=== PATIENT | male | born 1980 | race Caucasian/White ===

== ENCOUNTER 2016-07-06 23:30 | Emergency (ER) | payer BC, OTHER ==
[2016-07-07 00:05] LABS: SPECIFIC GRAVITY 1.025 (1.001-1.030); URINE BILIRUBIN NEGATIVE (NEGATIVE); URINE BLOOD TRACE (NEGATIVE); URINE GLUCOSE (UA) NEGATIVE (NEGATIVE); URINE LEUKOCYTE ESTERASE NEGATIVE (NEGATIVE); URINE NITRITE NEGATIVE (NEGATIVE); URINE PROTEIN NEGATIVE (NEGATIVE); URINE UROBILINOGEN 1 mg/dL (0-1 mg/dl)
[2016-07-07 00:07] LABS: URINE APPEARANCE CLEAR; URINE COLOR YELLOW
[2016-07-07] MEDS ORDERED: ONDANSETRON 4 MG ODT TAB ONE (00:48)
[2016-07-07] MEDS ORDERED: HYDROMORPHONE HCL 1 MG/ML SYRINGE ONE (01:11)
[2016-07-07] MEDS ORDERED: ONDANSETRON 4 MG/2ML 2 ML VIAL ONE (01:16)
[2016-07-07 01:30] LABS: ABSOLUTE NEUTROPHIL COUNT 6.3 K/mm3 (1.8-7.7); BASO # 0.1 K/mm3 (0.0-0.2); BASO % 0.6 % (0.2-1.0); EOS # 0.1 (0.0-0.5); EOS % 0.7 % (0.9-2.9); HEMATOCRIT 45.3 % (32.0-52.0); HEMOGLOBIN 14.8 gm/l (14.0-18.0); IMM NEUT% 0.2 % (0-1); LYMPH # 1.4 (1.0-4.8); LYMPH % 16.5 % (15-45); MEAN CELL VOLUME 86.5 fl (80.0-94.0); MEAN CORPUSCULAR HEMOGLOBIN 28.2 pg (27.0-31.0); MEAN CORPUSCULAR HGB CONC 32.7 g/dl (33.0-37.0); MEAN PLATELET VOLUME 11.2 fl (7.4-10.4); MONO # 0.7 (0.0-0.8); MONO % 8.3 % (4-12); NEUT % 73.7 % (43-75); PLATELET COUNT 221 K/mm3 (130-400); RED CELL DISTRIBUTION WIDTH 12.7 % (11.5-14.5)
[2016-07-07 01:41] LABS: ALBUMIN 4.4 gm/dL (3.5-5.7); CALCIUM 9.3 mg/dL (8.6-10.3)
[2016-07-07] MEDS ORDERED: KETOROLAC TROMETHAMINE 30 MG/ML 1 ML VIAL ONE (02:03)
[2016-07-07 02:10] LABS: ALB/GLOB RATIO 1.6 (>1.0)
--- NOTE | 2016-07-07 07:55 | CT ---
Exam: CT abdomen and pelvis without contrast COMPARISON: None INDICATION: Left flank pain for 3 hours. TECHNIQUE: CT examination of the abdomen and pelvis was obtained without contrast using a renal stone protocol. FINDINGS: There is a 3 mm calculus within the dependent urinary bladder. There is a 2 mm nonobstructing calculus the upper pole the right kidney. No additional calculus is identified within either kidney, ureter or bladder. Minor asymmetric stranding is seen about the left kidney and ureter. This likely reflects a recently passed calculus. There is no significant hydronephrosis. Cholelithiasis. Hepatic steatosis. Spleen is minimally enlarged at 14.4 cm. Pancreas is within normal limits and there is no adrenal mass. Tiny fat-containing periumbilical hernia is noted. There is no significant pelvic lymphadenopathy or fluid collection. The bowel is unremarkable and there is no bowel obstruction, free air or free intraperitoneal fluid. High density material about the base of the cecum is noted, is potentially related to appendectomy. Tiny hiatal hernia. Lung bases are clear. There is a fragmented appearance of the acetabulum bilaterally. 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 Facet arthropathy is present within the lumbar spine. IMPRESSION: 1. 3 mm calculus within the urinary bladder, likely just passed from the left ureter given the minor asymmetric perinephric stranding on the left. 2 mm nonobstructing calculus is noted within the right kidney. No additional calculi or hydronephrosis is identified. 2. Several incidental findings as above, including cholelithiasis, hepatic steatosis, minor splenomegaly, appendectomy changes as well as chronic changes in the bones as above. Preliminary report transmitted to the emergency department from [facility] at 0247 hours 07/07/2016.
== END 2016-07-07 04:05 | disposition home or self-care (01) ==
LOC: ED 23:30
DX: N20.1 Calculus of ureter (principal); E78.5 Hyperlipidemia, unspecified; Z79.899 Other long term (current) drug therapy
CPT/HCPCS: 85025; 80053; 81001; 74176; 96375; 99283 ×2; 96374; J1170; J1885; J2405; A9270